=== PATIENT | female | born 1960 | race Two or more races ===

== ENCOUNTER 2017-11-06 15:53 | Emergency (ER) | payer OTHER ==
[~2017-11-06] VITALS: Ht 165.1 cm; Wt 63.5 kg
== END 2017-11-06 21:02 | disposition home or self-care (01) ==
LOC: ER 15:53
DX: J06.9 Acute upper respiratory infection, unspecified (principal); K21.9 Gastro-esophageal reflux disease without esophagitis

== ENCOUNTER 2018-01-27 05:30 | Emergency (ER) | payer OTHER ==
[~2018-01-27] VITALS: Ht 152.4 cm; Wt 69.4 kg
[2018-01-27] MEDS ORDERED: METFORMIN HCL500 M2 PO (05:43)
[2018-01-27] MEDS ORDERED: LIPITOR40 MG PO (05:43)
== END 2018-01-27 12:35 | disposition home or self-care (01) ==
LOC: ER 05:30
DX: R07.89 Other chest pain (principal)

== ENCOUNTER 2018-04-02 11:30 | Outpatient (CLI) | payer OTHER ==
[~2018-04-02 11:30] MED LIST: LIPITOR40 MG PO; METFORMIN HCL500 M2 PO
== END 2018-04-02 11:32 | disposition home or self-care (01) ==
LOC: SONOGRAMA 11:30
DX: E04.2 Nontoxic multinodular goiter (principal); E03.8 Other specified hypothyroidism

== ENCOUNTER 2019-01-26 19:28 | Emergency (ER) | payer OTHER ==
[~2019-01-26] VITALS: Ht 162.6 cm; Wt 65.8 kg
[2019-01-27] MEDS ORDERED: PEPCID40 MG PO (02:34)
[2019-01-27] MEDS ORDERED: ZOFRAN4 MG PO (02:34)
== END 2019-01-27 02:55 | disposition home or self-care (01) ==
LOC: ER 19:28
DX: R53.81 Other malaise (principal); R11.2 Nausea with vomiting, unspecified; T40.4X5A Adverse effect of other synthetic narcotics, initial encounter; Y92.89 Other specified places as the place of occurrence of the external cause

== ENCOUNTER 2019-02-28 23:10 | Emergency (ER) | payer OTHER ==
[~2019-02-28] VITALS: Ht 162.6 cm; Wt 63.5 kg
[~2019-02-28 23:10] MED LIST changes: +PEPCID40 MG PO; +ZOFRAN4 MG PO
[2019-02-28] MEDS ORDERED: ZANTAC300 MG (23:43)
[2019-02-28] MEDS ORDERED: OMEPRAZOLE40 MG (23:44)
[2019-02-28] MEDS ORDERED: VOLTAREN100 GM (23:45)
[2019-03-01] MEDS ORDERED: XOPENEX0.63 MG/3 IH (07:08)
[2019-03-01] MEDS ORDERED: BUDESONIDE0.5 MG/2 M IH (07:08)
== END 2019-03-01 07:48 | disposition home or self-care (01) ==
LOC: ER 23:10 → CPU-OBS 23:11 → ER 03-01 07:48
DX: R06.02 Shortness of breath (principal); R07.89 Other chest pain

== ENCOUNTER 2019-03-12 06:19 | Emergency (ER) | payer OTHER ==
[~2019-03-12] VITALS: Ht 157.5 cm; Wt 58.5 kg
[~2019-03-12 06:19] MED LIST changes: +BUDESONIDE0.5 MG/2 M IH; +OMEPRAZOLE40 MG; +VOLTAREN100 GM; +XOPENEX0.63 MG/3 IH; +ZANTAC300 MG
== END 2019-03-12 17:33 | disposition home or self-care (01) ==
LOC: ER 06:19
DX: K52.89 Other specified noninfective gastroenteritis and colitis (principal); E86.0 Dehydration

== ENCOUNTER 2020-10-31 19:43 | Emergency (ER) | payer OTHER ==
[~2020-10-31] VITALS: Ht 167.6 cm; Wt 70.3 kg
== END 2020-10-31 22:27 | disposition home or self-care (01) ==
LOC: ER 19:43
DX: S13.4XXA Sprain of ligaments of cervical spine, initial encounter (principal); S33.5XXA Sprain of ligaments of lumbar spine, initial encounter; M47.894 Other spondylosis, thoracic region; X50.0XXA Overexertion from strenuous movement or load, initial encounter; Y93.89 Activity, other specified; Y92.89 Other specified places as the place of occurrence of the external cause; Y99.8 Other external cause status

== ENCOUNTER 2020-11-09 19:18 | Emergency (ER) | payer OTHER ==
[~2020-11-09] VITALS: Ht 160 cm; Wt 68.0 kg
== END 2020-11-09 23:22 | disposition home or self-care (01) ==
LOC: ER 19:18
DX: G44.89 Other headache syndrome (principal)

== ENCOUNTER 2020-11-23 05:04 | Emergency (ER) | payer OTHER ==
[~2020-11-23] VITALS: Ht 160 cm; Wt 68.0 kg
== END 2020-11-23 09:35 | disposition home or self-care (01) ==
LOC: ER 05:04
DX: M62.838 Other muscle spasm (principal); R51.9 Headache, unspecified; I10 Essential (primary) hypertension

== ENCOUNTER 2021-06-17 16:51 | Emergency (ER) | payer OTHER ==
[~2021-06-17] VITALS: Ht 160 cm; Wt 66.7 kg
[2021-06-17] MEDS ORDERED: FLONASE16 GM NS (17:09)
[2021-06-17] MEDS ORDERED: SPIRIVA RESPIMAT4 G1 IH (17:09)
[2021-06-17] MEDS ORDERED: SYMBICORT 16010.2 GM IH (17:09)
== END 2021-06-17 22:40 | disposition home or self-care (01) ==
LOC: ER 16:51
DX: R06.02 Shortness of breath (principal); J45.998 Other asthma; U09.9 Post COVID-19 condition, unspecified; R42 Dizziness and giddiness; Z88.8 Allergy status to other drugs, medicaments and biological substances

== ENCOUNTER 2024-07-21 10:52 | Outpatient (CLI) | payer OTHER ==
[~2024-07-21 10:52] MED LIST changes: +FLONASE16 GM NS; +SPIRIVA RESPIMAT4 G1 IH; +SYMBICORT 16010.2 GM IH
[2024-07-21 12:09] LABS: INR 0.94; PROTHROMBIN TIME 10.3 SECONDS (9.0-11.5)
[2024-07-21 12:16] LABS: HEMATOCRIT 41.4 % (36.0-45.00); HEMOGLOBIN 14.1 g/dL (12.0-15.00); MEAN CELL VOLUME 89.1 fL (80.00-100.00); MEAN CORPUSCULAR HEMOGLOBIN 30.5 pg (27.00-32.0); MEAN CORPUSCULAR HGB CONC 34.2 g/dl (32.0-36.0); PLATELET COUNT 270 K/uL (150-450); RED BLOOD COUNT 4.64 M/uL (4.00-6.00); RED CELL DISTRIBUTION WIDTH 14.3 % (11.5-14.5)
[2024-07-21 12:23] LABS: COL EPI 89 SECONDS (82-175)
[2024-07-21 12:29] LABS: ERYTHROCYTE SEDIMENTATION RATE 28 mm/hr
[2024-07-21 12:34] LABS: ALBUMIN 3.8 gm/dL (3.4-5.0); BILIRUBIN TOTAL 0.31 mg/dL (0.3-1.2); CALCIUM 9.3 mg/dL (8.5-10.1); CREATININE SERUM 0.67 mg/dL (0.55-1.02); GFR 89.18; GLOBULINA 3.4 G/DL (2.4-3.5); POTASSIUM 4.59 mEq/L (3.5-5.1); TOTAL PROTEIN 7.2 gm/dL (6.4-8.2)
[2024-07-21 12:51] LABS: FERRITIN 69.4 NG/ML (8-252); T4 FREE 1.27 NG/ML (0.76-1.46); TSH 1.88 uIU/mL (0.358-3.74)
[2024-07-21 12:52] LABS: C-REACTIVE PROTEIN 0.44 MG/DL (0.00-0.29)
[2024-07-21 12:57] LABS: MANUAL PLATELET COUNT 332; PLATELET ESTIMATE NORMAL (NORMAL)
[2024-07-21 13:22] LABS: FOLIC ACID 16.18 ng/ml (4.78-20)
[2024-07-23 07:09] LABS: hav igm Negative (Negative); hcv Non Reactive (Non Reactive); hep b c Negative (Negative); hep b s ag Negative (Negative)
== END 2024-07-21 10:57 | disposition home or self-care (01) ==
LOC: LAB 10:52
PROVIDERS: ATTEND Internal Medicine Hematology & Oncology
DX: D50.8 Other iron deficiency anemias (principal); R79.9 Abnormal finding of blood chemistry, unspecified; K76.89 Other specified diseases of liver; I10 Essential (primary) hypertension; R74.02 Elevation of levels of lactic acid dehydrogenase [LDH]; E03.8 Other specified hypothyroidism; D68.8 Other specified coagulation defects; D51.0 Vitamin B12 deficiency anemia due to intrinsic factor deficiency; D68.32 Hemorrhagic disorder due to extrinsic circulating anticoagulants; E78.2 Mixed hyperlipidemia; E03.2 Hypothyroidism due to medicaments and other exogenous substances; E05.90 Thyrotoxicosis, unspecified without thyrotoxic crisis or storm; J45.998 Other asthma; R74.01 Elevation of levels of liver transaminase levels; M05.79 Rheumatoid arthritis with rheumatoid factor of multiple sites without organ or systems involvement; B17.8 Other specified acute viral hepatitis; Z11.4 Encounter for screening for human immunodeficiency virus [HIV]; R75 Inconclusive laboratory evidence of human immunodeficiency virus [HIV]

== ENCOUNTER 2024-11-06 09:50 | Outpatient (CLI) | payer OTHER | END 2024-11-06 09:59 | disposition home or self-care (01) | LOC: LAB 09:50 | PROVIDERS: ATTEND Internal Medicine Hematology & Oncology | DX: D51.0 Vitamin B12 deficiency anemia due to intrinsic factor deficiency (principal); D68.59 Other primary thrombophilia; D68.32 Hemorrhagic disorder due to extrinsic circulating anticoagulants; E78.2 Mixed hyperlipidemia; E03.2 Hypothyroidism due to medicaments and other exogenous substances; E05.90 Thyrotoxicosis, unspecified without thyrotoxic crisis or storm; J45.998 Other asthma; R42 Dizziness and giddiness; D32.9 Benign neoplasm of meninges, unspecified ==

== ENCOUNTER → 2024-11-30 10:16 | Outpatient (CLI) | payer OTHER ==
[2024-11-30 11:43] LABS: BASO % 0.7 % (0.1-1.2); EOS # 0.19 (0.04-0.54); EOS % 4.1 % (0.7-7.0); LYMPH # 1.41 (1.18-3.74); LYMPH % 30.6 % (19.3-53.1); MEAN PLATELET VOLUME 9.30 fl (9.4-12.4); MONO # 0.44 (0.24-0.82); MONO % 9.5 % (4.7-12.5); NEUT # 2.52 (1.56-6.13); NEUT % 54.7 % (34.0-71.1); RED CELL DISTRIBUTION WIDTH 14.7 % (11.6-14.4)
[2024-11-30 12:03] LABS: % SATURACION 24.9 % (15-50); ALT/SGPT 42.0 U/L (12-78); AST/SGOT 26.0 U/L (15-37); BILIRUBIN TOTAL 0.51 mg/dL (0.3-1.2); BUN CREA RATIO 20.0 (7.0-25.0); CREATININE SERUM 0.64 mg/dL (0.55-1.02); FE 78.0 ug/dl (50-170); GFR 94.03; GLOBULINA 3.8 G/DL (2.4-3.5); GLUCOSE FASTING 114.0 mg/dL (65-100); LDH 222.0 U/L (84-246); OSMOLALITY SERUM 288.0 MOSM/KG (275-295)
[2024-11-30 12:31] LABS: INR 1.0
[2024-11-30 12:50] LABS: FOLIC ACID > 20.00 ng/ml (4.78-20); VITAMIN D3 25 HYDROXY 38.25 ng/ml (30-120)
[2024-11-30 13:10] LABS: COL ADP 85.0 SECONDS (56-102); COL EPI 95.0 SECONDS (82-175)
== END | disposition home or self-care (01) ==
LOC: LAB 10:16
PROVIDERS: ATTEND Internal Medicine Hematology & Oncology
DX: D51.0 Vitamin B12 deficiency anemia due to intrinsic factor deficiency (principal); D68.32 Hemorrhagic disorder due to extrinsic circulating anticoagulants; E78.2 Mixed hyperlipidemia; E03.2 Hypothyroidism due to medicaments and other exogenous substances; E05.90 Thyrotoxicosis, unspecified without thyrotoxic crisis or storm; J45.998 Other asthma; R42 Dizziness and giddiness; D32.9 Benign neoplasm of meninges, unspecified; D50.8 Other iron deficiency anemias; R79.9 Abnormal finding of blood chemistry, unspecified; I10 Essential (primary) hypertension; R74.02 Elevation of levels of lactic acid dehydrogenase [LDH]; K76.89 Other specified diseases of liver; D68.8 Other specified coagulation defects